=== PATIENT | female | born 1995 | race Caucasian/White ===

== ENCOUNTER 2018-12-12 19:02 | Emergency (ER) | payer OTHER ==
[2018-12-12 19:05] VITALS: BMI 25.6
[2018-12-12 19:06] VITALS: O2SAT 100
--- NOTE | 2018-12-12 20:57 | C.PDOC ---
History Of Present Illness Patient is a 23 year old female who presents to the ED c/o pain to the right foot after a heavy water bottle fell on her foot. Patient states that she is currently being treated for a MTP fracture and is concerned that she re-injured herself and would like xray's. She denies any weakness or numbness. Time Seen by Provider: 12/12/18 19:22 Chief Complaint (Nursing): Lower Extremity Problem/Injury History Per: Patient History/Exam Limitations: no limitations Current Symptoms Are (Timing): Still Present Recent travel outside of the [place]: No Additional History Per: Patient Past Medical History Reviewed: Historical Data, Nursing Documentation, Vital Signs Vital Signs: Last Vital Signs Temp 99.0 F 12/12/18 19:05 Pulse 84 12/12/18 19:05 Resp 20 12/12/18 19:05 BP 120/84 12/12/18 19:05 Pulse Ox 100 12/12/18 19:05 - Medical History PMH: No Chronic Diseases Surgical History: No Surg Hx Family History: States: No Known Family Hx - Social History Hx Alcohol Use: Yes Hx Substance Use: No - Immunization History Hx Tetanus Toxoid Vaccination: Yes Hx Influenza Vaccination: No Hx Pneumococcal Vaccination: No Review Of Systems Musculoskeletal: Positive for: Foot Pain (right ) Neurological: Negative for: Weakness, Numbness Physical Exam - Physical Exam Appears: Non-toxic, No Acute Distress Skin: Normal Color, Warm, Dry Head: Atraumatic, Normacephalic Chest: Symmetrical, No Deformity Cardiovascular: Rhythm Regular Respiratory: Normal Breath Sounds Extremity: Normal ROM (ankles and toes), Tenderness (along right 5th MTP. ), No Deformity, No Swelling Pulses: Left Dorsalis Pedis: Normal, Right Dorsalis Pedis: Normal Neurological/Psych: Oriented x3, Normal Speech ED Course And Treatment O2 Sat by Pulse Oximetry: 100 (on RA) Pulse Ox Interpretation: Normal Progress Note: Plan: Xray RT Foot. Xray showed a healing fracture of 5th MTP. Patient given CD for podiatry and advised to continue therapy and walking boot. Disposition - Disposition Referrals: [facility] [Outside] Disposition: HOME/ ROUTINE Disposition Time: 20:55 Condition: STABLE Additional Instructions: Please follow up with your [facility] Continue current therapy Return to ER if worse Instructions: Foot Fracture (DC) Forms: [employer] ([place]) - Clinical Impression Clinical Impression: Fracture of metatarsal of right foot, closed - PA / DIRECTOR OF REGULATORY AFFAIRS / Resident Statement MD/DO has examined the patient and agrees with the treatment plan. - Scribe Statement The provider has reviewed the documentation as recorded by the Jeff Jacobson All medical record entries made by the Scribe were at my direction and personally dictated by me. I have reviewed the chart and agree that the record accurately reflects my personal performance of the history, physical exam, medical decision making, and the department course for this patient. I have also personally directed, reviewed, and agree with the discharge instructions and disposition.
[2018-12-12 21:00] VITALS: BP 121/89; PULSE 62; RESP 18; TEMP 98
--- NOTE | 2018-12-13 12:12 | RAD ---
Date of service: 12/12/2018 PROCEDURE: X-ray of the right foot HISTORY: pain, water bottle fell on foot, past fx 5th MTP COMPARISON: No prior TECHNIQUE: Three views of the right foot were obtained. Periosteal thickening noted in the metatarsal bones. FINDINGS: There is fracture at the proximal 5th metatarsal bone noted. IMPRESSION: Fracture at the proximal portion of the right 5th metatarsal bone could be subacute.
== END 2018-12-12 21:00 | disposition home or self-care (01) ==
LOC: C.ER 19:02
DX: S92.301G Fracture of unspecified metatarsal bone(s), right foot, subsequent encounter for fracture with delayed healing (principal); W22.8XXD Striking against or struck by other objects, subsequent encounter